=== PATIENT | female | born 1965 | race Caucasian/White ===

== ENCOUNTER 2019-04-19 09:03 | Emergency (ER) | payer BC ==
[~2019-04-19] VITALS: Ht 152.4 cm; Wt 86.4 kg
[~2019-04-19 09:03] MED LIST: CIPR2.5D18 OP
[2019-04-19] MEDS ORDERED: meclizine 12.5mg tablet PO ONE (09:50)
[2019-04-19] MEDS ORDERED: normal saline 1000ml 1,000 ML IV ONE (09:50)
[2019-04-19] MEDS ORDERED: ondansetron/PF 4mg/2ml inj IV ONE (09:50)
[2019-04-19 10:20] LABS: BASOPHILS # (AUTO) 0.1 X10'3 (0-0.2); BASOPHILS % (AUTO) 0.7 % (0-1); EOSINOPHILS # (AUTO) 0.1 X10'3 (0-0.9); EOSINOPHILS % (AUTO) 0.4 % (0-6); HEMATOCRIT 44.3 % (35.0-45.0); HEMOGLOBIN 14.9 g/dl (12.0-16.0); LYMPHOCYTES # (AUTO) 1.5 X10'3 (1.1-4.8); LYMPHOCYTES % (AUTO) 10.6 % (21-51); MEAN CORPUSCULAR HEMOGLOBIN 31.8 PG (27.0-31.0); MEAN CORPUSCULAR HGB CONC 33.6 g/dL (33.0-36.5); MEAN CORPUSCULAR VOLUME 94.5 FL (78-98); MONOCYTES # (AUTO) 0.5 X10'3 (0-0.9); MONOCYTES % (AUTO) 3.5 % (2-12); NEUTROPHILS # (AUTO) 11.7 X10'3 (1.8-7.7); NEUTROPHILS % (AUTO) 84.8 % (42-75); PLATELET COUNT 263 X10'3 (140-440); RED BLOOD COUNT 4.69 X10'6 (4.20-5.60); RED CELL DISTRIBUTION WIDTH 13.5 % (11.5-14.5); WHITE BLOOD COUNT 13.8 X10'3 (4.5-11.0)
[2019-04-19 10:36] LABS: ALANINE AMINOTRANSFERASE 22 U/L (12-78); ALKALINE PHOSPHATASE 83 IU/L (46-116); ANION GAP 11 (8-16); ASPARTATE AMINO TRANSFERASE 14 U/L (10-37); BILIRUBIN,TOTAL 0.3 MG/DL (0.1-1.0); BLOOD UREA NITROGEN 15 MG/DL (7-18); BUN/CREATININE RATIO 21.7 (6.6-38.0); CALCIUM 9.1 MG/DL (8.5-10.1); CHLORIDE 104 MMOL/L (99-107); CREATININE 0.69 MG/DL (0.40-0.90); GLUCOSE 128 MG/DL (70-104); MAGNESIUM 1.7 MG/DL (1.5-2.4); POTASSIUM 3.8 MMOL/L (3.5-5.1); SODIUM 141 MMOL/L (135-145); TOTAL CARBON DIOXIDE 25.7 MMOL/L (24-32); eGFR 89 ML/MIN
[2019-04-19] MEDS ORDERED: ONDA8TAB6 PO (12:57)
[2019-04-19] MEDS ORDERED: MECL-111 PO (12:57)
--- NOTE | 2019-04-19 12:57 | NUR ---
GAIT TESTED TO BATHROOM AND AROUND THE UNIT X 1. PATIENT STEADY AND DENIES DIZZINESS AT THIS TIME. DR. KIRBY INFORMED OF PATIENT STATUS WITH GAIT TESTING.
[2019-04-19 13:26] VITALS: BP 149/81
== END 2019-04-19 13:28 | disposition home or self-care (01) ==
LOC: ER 09:04
DX: E86.0 Dehydration (principal); R51 Headache; Z79.899 Other long term (current) drug therapy
CPT/HCPCS: 36415; 80053; 83735; 84484; 85025; 93005; 96361; 96374; 99284; J2405; J7030; J8597